=== PATIENT | male | born 1975 | race Caucasian/White ===

== ENCOUNTER → 2018-05-10 03:38 | Outpatient (CLI) | payer BC, SELFPAY ==
[2018-05-10 11:38] LABS: CREATININE 0.92 mg/dL (0.70-1.30); Cholesterol 209 mg/dL (50-200); Glucose 113 mg/dL (70-100); HDL Cholesterol 51 mg/dL (40-60); LDL CHOLESTEROL 149 mg/dL (<100); Triglyceride 74 mg/dL (30-150)
== END ==
PROVIDERS: PCP Family Medicine; Visit Provider Family Medicine
DX: I10 Essential (primary) hypertension (principal); E74.39 Other disorders of intestinal carbohydrate absorption; Z13.220 Encounter for screening for lipoid disorders
CPT/HCPCS: 36415; 80061; 82947; 83721; 82565; 84132

== ENCOUNTER 2018-08-14 10:21 | Outpatient (CLI) | payer OTHER, SELFPAY ==
--- NOTE | 2018-08-14 13:16 | DI.RAD_ITS ---
SYMPTOMS/DIAGNOSIS: LEFT FOOT PAIN S/P DROPPING PLYWOOD ON TOES, TENDER BIG TOE , M79.672 LEFT FOOT: Three views. No priors. There is a nondisplaced oblique fracture through the lateral aspect of the base of the distal phalanx of the great toe. There is also a lucency seen in the medial aspect of the head of the proximal phalanx of the great toe, suspicious for a nondisplaced fracture. There is soft tissue swelling of the great toe. No radiopaque foreign bodies are seen in the soft tissues. There are moderately large osteophytes seen at the talonavicular joint , the articulation between the articular and cuneiforms and the tarsometatarsal joints. There is a small enthesophyte at the insertion site of the Achilles. IMPRESSION: Findings of nondisplaced fractures involving the proximal and distal phalanges of the great toe.
== END 2018-08-14 10:41 ==
PROVIDERS: PCP Family Medicine; Visit Provider Family Medicine
DX: M79.672 Pain in left foot (principal); S92.412A Displaced fracture of proximal phalanx of left great toe, initial encounter for closed fracture; S92.422A Displaced fracture of distal phalanx of left great toe, initial encounter for closed fracture
CPT/HCPCS: 73630

== ENCOUNTER 2018-09-13 09:47 | Outpatient (CLI) | payer OTHER, SELFPAY ==
--- NOTE | 2018-09-13 09:35 | DI.RAD_ITS ---
SYMPTOM/DIAGNOSIS: FX LEFT GREAT TOE: Two views. Comparison 08/14/18 There has been no change in alignment of the fractures involving the base of the distal phalanx and the head of the proximal phalanx of the great toe. No new fractures or dislocations are seen. IMPRESSION: Stable fractures of the left great toe.
== END 2018-09-13 10:07 ==
PROVIDERS: PCP Family Medicine; Visit Provider Physician Assistant Surgical
DX: S92.425D Nondisplaced fracture of distal phalanx of left great toe, subsequent encounter for fracture with routine healing (principal); S92.412D Displaced fracture of proximal phalanx of left great toe, subsequent encounter for fracture with routine healing
CPT/HCPCS: 73660

== ENCOUNTER 2018-12-14 11:49 | Outpatient (CLI) | payer BC, SELFPAY ==
--- NOTE | 2018-12-14 14:33 | DI.RAD_ITS ---
SYMPTOMS/DIAGNOSIS: FALL, PLEURODYNIA, R07.81 PA CHEST AND RIGHT RIBS: The heart size is normal. The lungs are clear. No pneumothorax is seen. No rib fractures are identified. The right shoulder shows mild degenerative change. IMPRESSION: No acute abnormality.
== END 2018-12-14 12:09 ==
PROVIDERS: PCP Family Medicine; Visit Provider Family Medicine
DX: R07.81 Pleurodynia (principal)
CPT/HCPCS: 71046; 71100

== ENCOUNTER 2019-08-28 12:50 | Outpatient (CLI) | payer BC, SELFPAY ==
[2019-08-28 11:26] LABS: CREATININE 0.83 mg/dL (0.70-1.30); Calculated LDL 114 mg/dL; Cholesterol 175 mg/dL (<200); HDL Cholesterol 52 mg/dL (40-60); Hemoglobin A1C 5.7 % (4.5-6.2); Potassium 4.3 mmol/L (3.5-5.1); Triglyceride 46 mg/dL (<150)
== END 2019-08-28 13:10 ==
PROVIDERS: PCP Family Medicine; Visit Provider Family Medicine
DX: I10 Essential (primary) hypertension (principal); E74.39 Other disorders of intestinal carbohydrate absorption
CPT/HCPCS: 36415; 80061; 82565; 83036; 84132

== ENCOUNTER 2020-08-18 02:15 | Outpatient (CLI) | payer BC, SELFPAY ==
[2020-08-18 13:16] LABS: CREATININE 0.88 mg/dL (0.70-1.30); Calculated LDL 128 mg/dL (<100); Cholesterol 199 mg/dL (<200); HDL Cholesterol 49 mg/dL (40-60); Triglyceride 113 mg/dL (<150)
== END 2020-08-18 02:35 ==
PROVIDERS: PCP Family Medicine; Visit Provider Family Medicine
DX: Z00.00 Encounter for general adult medical examination without abnormal findings (principal); Z13.220 Encounter for screening for lipoid disorders
CPT/HCPCS: 36415; 80061; 82565; 84132

== ENCOUNTER 2021-09-01 02:33 | Outpatient (CLI) | payer BC, SELFPAY ==
[2021-09-01 10:01] LABS: CREATININE 0.8 mg/dL (0.70-1.30); Calculated LDL 146 mg/dL (<100); Cholesterol 212 mg/dL (<200); HDL Cholesterol 51 mg/dL (40-60); Potassium 4.2 mmol/L (3.5-5.1); Triglyceride 78 mg/dL (<150)
[2021-09-02 13:22] LABS: SS-A Antibody 0.8 Units (<20.0); SS-B (La) Ab, IgG 1.3 Units (<20.0)
== END 2021-09-01 02:34 | disposition home or self-care (01) ==
LOC: LBO 02:33
PROVIDERS: Family Medicine; PCP Family Medicine; Visit Provider Family Medicine
DX: I10 Essential (primary) hypertension; E78.5 Hyperlipidemia, unspecified; R43.2 Parageusia
CPT/HCPCS: 36415; 80061; 82565; 84132; 86235

== ENCOUNTER 2022-09-08 01:43 | Outpatient (CLI) | payer BC, SELFPAY ==
[2022-09-08 11:05] LABS: CREATININE 0.9 mg/dL (0.70-1.30); Calculated LDL 140 mg/dL (<100); Cholesterol 211 mg/dL (<200); Estimated GFR 106.01 (mL/min/1.73m2); HDL Cholesterol 62 mg/dL (40-60); Triglyceride 49 mg/dL (<150)
== END 2022-09-08 01:44 | disposition home or self-care (01) ==
PROVIDERS: PCP Family Medicine; Visit Provider Family Medicine
DX: Z00.00 Encounter for general adult medical examination without abnormal findings (principal)
CPT/HCPCS: 36415; 80061; 82565; 84132

== ENCOUNTER 2022-12-14 08:35 | Outpatient (CLI) | payer BC, SELFPAY ==
[2022-12-14 12:28] LABS: Potassium 3.7 mmol/L (3.5-5.1)
== END 2022-12-14 08:36 | disposition home or self-care (01) ==
LOC: LOS 08:36
PROVIDERS: PCP Family Medicine; Referring Provider Family Medicine; Visit Provider Family Medicine
DX: I10 Essential (primary) hypertension (principal)
CPT/HCPCS: 36415; 84132

== ENCOUNTER 2023-03-28 11:06 | Outpatient (CLI) | payer BC, SELFPAY ==
[2023-03-28 14:47] LABS: Potassium 4.6 mmol/L (3.5-5.1)
== END 2023-03-28 11:07 | disposition home or self-care (01) ==
LOC: LOS 11:07
PROVIDERS: PCP Family Medicine; Referring Provider Family Medicine; Visit Provider Family Medicine
DX: I10 Essential (primary) hypertension (principal)
CPT/HCPCS: 36415; 84132

== ENCOUNTER 2023-08-30 08:43 | Day surgery (SDC) | payer BC, SELFPAY ==
--- NOTE | 2023-08-30 07:25 | PDOC.DSDIS_ITS ---
Date of service: 08/30/23 Time of Service: 07:25 Discharge Plan Disposition Condition: Good Discharge Details Reason For Visit: De Quervain's Release R wrist Attending Provider: Jaylan Saba Primary Care Provider: Maykel Baca Home Meds and New Rx's Prescriptions: New acetaminophen 500 mg tablet 1,000 mg PO TID Qty: 90 0RF ibuprofen 600 mg tablet 600 mg PO TID PRN (Reason: pain) Qty: 90 0RF hydrocodone-acetaminophen 5-325 mg tablet 1 tab PO Q6H PRN (Reason: pain) Qty: 6 0RF Continued spironolactone [Aldactone] 50 mg tablet 50 mg PO DAILY Qty: 90 3RF lisinopril [Zestril] 20 mg tablet 20 mg PO DAILY Qty: 90 4RF Hold Instructions: Home Medication placed on hold at Doctor's office lisinopril-hydrochlorothiazide [Zestoretic] 20-25 mg tablet 1 tab PO DAILY Qty: 90 4RF Hold Instructions: Home Medication placed on hold at Doctor's office omeprazole 20 mg capsule,delayed release(DR/EC) 20 mg PO DAILY PRN (Reason: heartburn) Qty: 90 4RF metoprolol succinate 200 mg tablet extended release 24 hr 200 mg PO DAILY Qty: 90 3RF Discharge Instructions Additional Instructions: Rosa'ysabel Discharge Instructions Activity: You should keep the hand elevated as much as possible for the first few days. You may use the other fingers as tolerated but avoid trying to do too much too soon. You may perform light activities with the splint in place. Dressing/Cast: Your splint should stay in place at all times. Do NOT get it wet. You may loosen the ZACHARY wrap if you feel it is too tight and then rewrap more loosely. Medications: - You should take Tylenol and Ibuprofen for baseline pain control. - You have Hydrocodone for breakthrough pain. - You may apply ice over the thumb. Follow-up: 7-10 days Referrals: Jaylan Saba MD [ [facility] STAFF PHYSICIAN] - Equipment/Supplies: Splint Activity:: Elevate Remove Dressings/Wound Care:: Do Not Remove Shower/Bathe:: Cover Diet:: As Tolerated DS: Diagnosis Discharge Diagnosis (1) De Quervain's tenosynovitis, right: Status: Acute
[2023-08-30 09:08] VITALS: BP 148/90; PULSE 74; RESP 16; TEMP 36.3; O2SAT 98
[2023-08-30] MEDS: Lactated Ringers 1,000 ML 80 ML IV (09:46)
--- NOTE | 2023-08-30 09:57 | W.ANESPRE ---
General Info Date of Service Date Performed: 08/30/23 Height: 6 ft Weight: 123.6 kg Body Mass Index (BMI): 36.9 Surgical Procedure: Operation Date: 08/30/23 11:10 Proposed Procedure Side Surgeon p Wrist Dequervains Release Right Jaylan Saba MD Meds Allergies and Home Medications Allergies Allergy/AdvReac Type Severity Reaction Status Date / Time No Known Allergies Allergy Verified 08/30/23 08:59 Home Medication Medication Instructions Recorded lisinopril 20 mg tablet (Zestril) 20 mg PO DAILY #90 tab-caps 09/07/21 lisinopril 20 1 tab PO DAILY #90 tab-caps 09/15/22 mg-hydrochlorothiazide 25 mg tablet (Zestoretic) metoprolol succinate 200 mg 200 mg PO DAILY #90 tabs 09/15/22 tablet,extended release 24 hr omeprazole 20 mg capsule,delayed 20 mg PO DAILY PRN heartburn #90 09/15/22 release caps spironolactone 50 mg tablet 50 mg PO DAILY #90 tabs 12/14/22 (Aldactone) acetaminophen 500 mg tablet 1,000 mg (2 x 500 mg) PO TID #90 08/30/23 tabs hydrocodone 5 mg-acetaminophen 325 1 tab PO Q6H PRN pain #6 tabs 08/30/23 mg tablet ibuprofen 600 mg tablet 600 mg PO TID PRN pain #90 tabs 08/30/23 Current Visit Medications: Current Medications Generic Name Dose Route Start Last Admin Trade Name Freq PRN Reason Stop Dose Admin Acetaminophen 650 mg 08/30/23 07:24 Acetaminophen 325 Mg Tab PO 09/29/23 07:23 Q4H PRN PRN Hydrocodone Bitart/Acetaminophen 0 tab 08/30/23 07:24 Hydrocodone 5/Acetaminophen 325 Tab PO 09/29/23 07:23 Q3H PRN PRN Pain Ringer's Solution 1,000 mls @ 80 mls/hr 08/30/23 06:00 08/30/23 09:46 IV 08/30/23 23:59 80 mls/hr INFUSION CALVIN Administration Cefazolin Sodium/Dextrose 2 gm in 50 mls @ 100 mls/hr 08/30/23 06:00 Ancef Duplex IVPB 08/30/23 23:59 PREOP CALVIN IV Miscellaneous Supplies 1 each 08/30/23 06:00 Iv Access IV 08/30/23 23:59 DIRECTED CALVIN Sodium Chloride 0 ml 08/30/23 06:00 Normal Saline Flush 10 Ml Syr IV 08/30/23 23:59 PRN PRN Sodium Chloride 0 ml 08/30/23 06:00 Normal Saline 10 Ml Vial IJ 08/30/23 23:59 DIRECTED PRN Sterile Water 0 ml 08/30/23 06:00 Water,Injection,Sterile 10 Ml Vial IJ 08/30/23 23:59 DIRECTED PRN PFSH Active Problems Active Problems: Problem Status Onset Code Obesity E66.9 Overweight E66.3 De Quervain's tenosynovitis, right M65.4 Intermittent palpitations R00.2 Dermoid cyst of face D23.30 Mood disorder F39 Altered taste R43.2 Increased body mass index R63.8 Glucose intolerance 05/16/18 E74.39 Essential hypertension I10 Medical History Active Problem List Altered taste (Acute) Increased body mass index (Acute) Glucose intolerance (Acute 05/16/18) Essential hypertension (Acute) Medical History Color vision deficiency Foot pain, left xray ibuprofen support shoe Nevus, non-neoplastic multiple nevi on back; dysplastic nevus 2005 Seborrheic dermatitis (03/08/13) Surgical History Surgical History S/P trigger finger release Vasectomy Tobacco Smoking/Tobacco Use Status: Former Tobacco Use Passive smoking exposure: Yes Second hand exposure: Yes Alcohol Alcohol Intake: current Alcohol intake frequency: a few times a month Alcohol type: beer and wine Substance Use Substance use: Never Substance use type: does not use Vital Signs and Lab Results Vital Signs Most Recent Vital Signs in EMR: Most Recent Vital Signs Temp Pulse Resp BP Pulse Ox 36.3 C L 74 16 148/90 H 98 08/30/23 09:08 08/30/23 09:08 08/30/23 09:08 08/30/23 09:08 08/30/23 09:08 Lab Results Blood Type / Crossmatch: No Data to Display Complete Blood Count: No Data to Display Complete Metabolic Panel: No Data to Display Liver Function Panel: No Data to Display Coagulation Panel: No Data to Display Cardiac Panel: No Data to Display Arterial Blood Gas: No Data to Display Venous Blood Gas: No Data to Display Pancreas Panel: No Data to Display Thyroid Panel: No Data to Display Infectious Disease: No Data to Display Blood Cultures: No Data to Display Toxicology Panel: No Data to Display Anesthesia Assessment and Plan Anesthesia History Personal History: No History of Anesthesia Complications Family History: No Family History of Anesthesia Complications Exercise Tolerance Exercise Tolerance: Metabolic Equivalents>4 Pertinent Negatives Pertinent Negatives: No Symptoms of GERD Cardiac & Pulmonary Exam Cardiac Exam: Normal S1/S2 Heart Sounds Pulmonary Exam: Clear Bilateral Breath Sounds Implantable Cardiac Device Does patient have a Pacemaker or an ICD?: No Airway Exam Known Difficult Airway: No Mallampati Class: 2 Mouth Opening: Normal (> 3cm) Thyromental Distance: Greater than 3 cm Neck Range of Motion: Full ROM Neck Circumference: Normal Teeth Condition: Normal Dentition ASA Classification ASA Score: ASA 2 Emergency Case?: No NPO Status NPO Status: NPO Clears >2 hours, Solids >8 hours Anesthesia Plan Resuscitation Status: Full Code Anesthesia Technique: MAC Anesthesia Airway Planned: Natural Airway Monitors Used: Standard Monitors
[2023-08-30 09:58] VITALS: BMI 36.9
--- NOTE | 2023-08-30 10:21 | W.PREOPHP ---
Assessment and Plan Assessment and plan (1) De Quervain's tenosynovitis, right: Status: Acute Assessment and plan: Knostantin is a 47-year-old who has de Quervain's seems to Vitjose about the right hand. He has failed other nonoperative options and is here today for de Quervain's, first extensor compartment, release. I reviewed the risk with him. I discussed the potential complications of the procedure to include, but not limited to, bleeding, infection, pain, stiffness, damage to nerves and vessels, damage to muscle and tendons, incomplete release, tendon subluxation. Despite these risks, he elects to proceed. History of Present Illness History of Present Illness Chief Complaint: Right thumb pain Narrative: Konstantin is a 47-year-old who I seen previously for de Quervain's tenosynovitis about the right hand. He underwent an injection which did very well. But unfortunately the symptoms have returned. He has pain about the radial aspect of the right wrist. He denies any other symptoms. No new issues. No chest pain or shortness of breath. Review of Systems All systems reviewed & are unremarkable except as noted in HPI and below PFSH All Active Problems Obesity (Chronic) Overweight (Acute) De Quervain's tenosynovitis, right (Acute) S/P Release: 08/30/2023 Intermittent palpitations (Acute) Dermoid cyst of face (Acute) Mood disorder (Acute) Altered taste (Acute) felt to be related to dry mouth Increased body mass index (Acute) Glucose intolerance (Acute 05/16/18) Essential hypertension (Acute) Medical History Foot pain, left xray ibuprofen support shoe Seborrheic dermatitis (03/08/13) Nevus, non-neoplastic multiple nevi on back; dysplastic nevus 2006 Color vision deficiency Surgical History S/P trigger finger release Vasectomy Family History Mother Essential hypertension Hyperlipidemia Father Essential hypertension Hyperlipidemia Sister Essential hypertension Brother Essential hypertension Maternal Grandfather No problems noted. Paternal Grandfather Diabetes Maternal Grandmother No problems noted. Paternal Grandmother Breast cancer Daughter No problems noted. Son No problems noted. Social History Smoking/Tobacco Use Status: Former Tobacco Use tobacco type: cigarettes Quit Date: 10/02/07 Second Hand Exposure: Yes Smoking risk assessment performed?: Yes Alcohol Intake: current Alcohol Intake frequency: a few times a month Alcohol type: beer and wine Drug use: Never Substance use type: does not use Caregiver/Support person: No Household members: spouse and children Housing: house Communication Needs: None and Corrective Lenses Do you need help understanding health information?: Rarely Pets and animals: No Sexually active: Yes Do you think of yourself as: straight/heterosexual Current gender identity: male What is your relationship status?: How often do you talk on the phone with friends or family?: twice per week How often do you get together with friends or relatives?: once per week How often do you attend rastafari or mormon services?: 4 or more times per year Do you belong to any clubs or organized social groups?: no Panel score (0-1 are the most socially isolated patients): 3 What type of physical activity do you participate in: walking Duration: 15-30 minutes/day Frequency: 3-4 times per week Magda/Orthodoxy: Taoism Seatbelt use: always Helmet use: Yes Helmet use: sometimes Drive intox or ride w/intox stunt driver: No Do you feel safe at home: Yes Do you feel safe in your relationship?: Yes Victim of physical abuse: No Victim of emotional abuse: No Victim of sexual abuse: No Would you like helpful sources: No Meds Allergies and Home Medications Allergies Allergy/AdvReac Type Severity Reaction Status Date / Time No Known Allergies Allergy Verified 08/30/23 08:59 Home Medications Medication Instructions Recorded Confirmed Type lisinopril 20 mg tablet (Zestril) 20 mg PO DAILY #90 tab-caps 09/07/21 08/29/23 Rx lisinopril 20 1 tab PO DAILY #90 tab-caps 09/15/22 08/30/23 Rx mg-hydrochlorothiazide 25 mg tablet (Zestoretic) metoprolol succinate 200 mg 200 mg PO DAILY #90 tabs 09/15/22 08/30/23 Rx tablet,extended release 24 hr omeprazole 20 mg capsule,delayed 20 mg PO DAILY PRN heartburn #90 09/15/22 08/30/23 Rx release caps spironolactone 50 mg tablet 50 mg PO DAILY #90 tabs 12/14/22 08/30/23 Rx (Aldactone) acetaminophen 500 mg tablet 1,000 mg (2 x 500 mg) PO TID #90 08/30/23 Rx tabs hydrocodone 5 mg-acetaminophen 325 1 tab PO Q6H PRN pain #6 tabs 08/30/23 Rx mg tablet ibuprofen 600 mg tablet 600 mg PO TID PRN pain #90 tabs 08/30/23 Rx Exam Const General: cooperative, healthy appearing and no acute distress Orientation: alert, awake and oriented x3 Resp Effort & Inspection: normal respiratory effort Auscultation: clear to auscultation bilaterally Cardio Rate: regular rate Rhythm: regular rhythm Results Last Vital Signs Temp 36.3 C L 08/30/23 09:08 Pulse 74 08/30/23 09:08 Resp 16 08/30/23 09:08 BP 148/90 H 08/30/23 09:08 Pulse Ox 98 08/30/23 09:08
[2023-08-30] MEDS: ceFAZolin 2 GM/50 ML BAG IVPB (10:26)
[2023-08-30] MEDS: Lidocaine 1% Pres-Free 30 ML VIAL (10:32)
[2023-08-30] MEDS: Sodium Bicarbonate 50 MEQ/50 ML VIAL (10:32)
[2023-08-30 11:16] VITALS: BP 110/75; PULSE 68; RESP 16; TEMP 36.6; O2SAT 94
[2023-08-30 11:22] VITALS: BP 117/90; PULSE 57; RESP 16; TEMP 36.7; O2SAT 98
--- NOTE | 2023-08-30 11:27 | W.PM.OP ---
Date of service: 08/30/23 Time of Service: 10:20 Operative Note Operative Note DATE OF PROCEDURE: 08/30/23 PRE-OP DIAGNOSIS: Right DeQuervain's Tenosynovitis POST-OP DIAGNOSIS: same PROCEDURE: Right First Extensor Compartment Release SURGEON: Jaylan Saba ANESTHESIA TYPE: General:No Airway Refer to Anesthesia Record ESTIMATED BLOOD LOSS: 0 PATHOLOGY: none sent TOURNIQUET TIME: 0 COMPLICATIONS: None Patient was transported to: same day Patient's condition: stable Indications: Konstantin is a 47-year-old male who has had symptoms of Dequervain's tenosynovitis. Nonoperative treatment options had been trialed. Given their failure, I offered operative intervention. I reviewed the technical details of a first extensor compartment release. I reviewed the risk of the procedure to include bleeding, infection, pain, stiffness, tendon instability, damage to the superficial radial nerve, and complete release. Despite these risks, the patient elected to proceed. Findings: There was a tightened first excessive compartment. One primary subcompartments was seen encasing the EPB tendon. Procedure Description: Konstantin was greeted in the preoperative holding area. Name and surgical site were confirmed. The history and physical was completed. The consent was reviewed the patient and signed. He was taken back to the operating room. The patient was placed in the supine position and monitored anesthesia care was initiated. The right was then prepped with ChloraPrep and draped in a standard fashion after a nonsterile tourniquet was placed high up onto the arm. Prophylactic antibiotics in the form of cefazolin were administered. A timeout was performed for safe surgery. The surgical site was drawn on the skin. The planned surgical field was anesthetized with 0.25% bupivacaine with epinephrine. A 2 cm incision was made longitudinally over the radial styloid. The skin was incised only. The deep tissue subcutaneous fat was dissected with a tenotomy scissors trying to protect bridge of the superficial radial nerve. Any branches that were identified were retracted out of the way. The first compartment extensor tendons were then identified. The distal aspect of the first compartment was noted and were released. This release was performed more on the dorsal side to prevent tendon subluxation. The entirety of the first extensor compartment was then released. The slips of the abductor pollicis longus tendon were inspected. They removed to confirm the appropriate motion of the thumb. The extensor pollicis brevis tendon was then identified. There was 1 primary set compartment with the EPB tendon. It was fully released. Traction on the tendon was also used to confirm appropriate extension of the thumb confirming the release of the appropriate tendon. The dorsal radial surface of the radius was once again inspected to make sure there is no other sub-compartments or other restrictions to tendon motion. There is extensive amount of synovitis which was debrided sharply. The wound was then thoroughly irrigated. The deep tissue was closed with a 3-0 Vicryl. The skin was closed with a running subjective 4-0 Monocryl. Skin glue was applied. The tourniquet is released without significant bleeding. The hand was dressed with 4 x 4's, Kerlex and ZACHARY wrap into a soft thumb spica splint. All counts were correct. Patient was transferred back to same day surgery area in stable condition.
--- NOTE | 2023-08-30 11:42 | W.ANESPOSTOP ---
Postoperative Evaluation Date, Time and Location Date Performed: 08/30/23 Time Performed: 11:42 Patient Location: Day Surgery Unit Vital Signs Most Recent Imported Vital Signs: Most Recent Vital Signs Temp Pulse Resp BP Pulse Ox 36.7 C 57 L 16 117/90 98 08/30/23 11:22 08/30/23 11:22 08/30/23 11:22 08/30/23 11:22 08/30/23 11:22 Pain Score Most Recent Pain Score: Most Recent Pain Score Pain Level 0 08/30/23 11:22 Assessment Mental Status: Awake (Alert & Oriented to Patient Baseline) Airway and Respiratory Function: Patent airway with normal (patient baseline) respiratory exam Cardiovascular Function: Hemodynamically Stable Hydration Status: Adequately Hydrated Nausea & Vomiting: No Nausea or Vomiting Pain: Pt. Denies Any Pain Peripheral Nerve Block: Patient did not receive a nerve block
== END 2023-08-30 12:10 | disposition home or self-care (01) ==
LOC: SUR 08:43
PROVIDERS: PCP Family Medicine; Visit Provider Student in an Organized Health Care Education/Training Program
PROC: (CPT 25000; principal; 2023-08-30 11:00)
DX: M65.4 Radial styloid tenosynovitis [de Quervain] (principal)
CPT/HCPCS: 25000; J0690; J1100; J1885; J2405; J2704

== ENCOUNTER 2023-09-07 04:27 | Outpatient (CLI) | payer BC, SELFPAY ==
[2023-09-07 07:53] LABS: Calculated LDL 128 mg/dL (<100); Cholesterol 207 mg/dL (<200); Estimated GFR 92.84 (mL/min/1.73m2); HDL Cholesterol 44 mg/dL (40-60); Triglyceride 179 mg/dL (<150)
== END 2023-09-07 04:28 | disposition home or self-care (01) ==
LOC: LBO 04:28
PROVIDERS: PCP Family Medicine; Visit Provider Family Medicine
DX: E78.5 Hyperlipidemia, unspecified (principal); I10 Essential (primary) hypertension
CPT/HCPCS: 36415; 80061; 82565

== ENCOUNTER 2024-01-01 07:40 | Day surgery (SDC) | payer BC, SELFPAY ==
--- NOTE | 2023-12-31 14:30 | W.PM.DSUDISC ---
Date of service: 01/01/24 Time of Service: 09:13 Discharge Plan Disposition Patient Disposition: Home Condition: Good Discharge Details Reason For Visit: Screening colonoscopy Attending Provider: Chandan Kaiser Primary Care Provider: Maykel Baca Home Meds and New Rx's Prescriptions: Continued amlodipine 5 mg tablet 5 mg PO DAILY Qty: 90 3RF lisinopril-hydrochlorothiazide [Zestoretic] 20-25 mg tablet 1 tab PO DAILY Qty: 90 4RF Hold Instructions: Home Medication placed on hold at Doctor's office metoprolol succinate 200 mg tablet extended release 24 hr 200 mg PO DAILY Qty: 90 3RF albuterol sulfate [Ventolin HFA] 90 mcg/actuation HFA aerosol inhaler 2 puff inhalation QID PRN (Reason: shortness of breath or wheezing) Qty: 8.5 1RF Discontinued bisacodyl [Dulcolax (bisacodyl)] 5 mg tablet,delayed release (DR/EC) 5 mg PO ONCE Qty: 4 0RF Rx Instructions: Colonoscopy Bowel Prep- Per Instructions polyethylene glycol 3350 17 gram/dose powder 238 g PO ONCE Qty: 238 0RF Rx Instructions: Colonoscopy Bowel Prep- Per Instructions Discharge Instructions Instructions: Diverticulosis (GEN), Colorectal Polyps (GEN), Diverticulosis Diet (GEN) Additional Instructions: Konstantin, we were able to complete your colonoscopy today without any difficulty I did find a total of 5 polyps, which I removed completely. None of them have any particularly worrisome features to the naked eye. All will be sent off to be tested by the pathologist, and once we know the nature of the polyps, that my office will be in touch with recommendations for the timing of your next colonoscopy. Incidentally, you also have a little bit of diverticulosis. These are little weak spots in the muscular part of the colon wall. Generally, staying well-hydrated, avoiding symptoms of constipation, and maintaining a diet that is rich in dietary fiber is the best strategy to help prevent complications of diverticulosis. Have attached some general information here about: Rectal polyps, as well as diverticular disease. If you have any questions in the meantime, please do not hesitate to call or ask at any point. 1. If tolerated, consume a soft, low fiber diet for 1-2 days. 2[address] Do not drive, drink alcohol, operate machinery, make critical decisions, or do activities that require coordination or balance for 24 hours. 3. Because air was put into your colon during the procedure, expelling air from your rectum (passing gas or farting) is normal. 4. You may not have a bowel movement for 1-3 days because of the colonoscopy prep. This is normal. 5. Go directly to the emergency room if you notice any of the following: Develop chills (warm to touch), or if you have a thermometer and your temperature is above 101 Difficulty breathing or difficultly swallowing Persistent vomiting Severe abdominal pain, other than gas cramps Severe chest pain Black, tarry stools Any bleeding ? exceeding one tablespoon 6. Call your physician if the site where your intravenous was started becomes red, swollen, painful, and warm to touch. 7. Your physician has reviewed your pre-procedure medications. Please continue to take those medications as previously ordered. You will be given specific information/education regarding any changes to your medications before leaving. Activity:: Activity as Tolerated Diet:: As Tolerated Discharge Orders Discharge Orders: Discharge Order (Routine); Ordered 12/31/23 Ordered By: Chandan Kaiser DS: Diagnosis Discharge Diagnosis (1) Positive colorectal cancer screening using Cologuard test: Status: Acute Asessment and Plan: Follow-up on polypectomy results
--- NOTE | 2023-12-31 14:31 | COLE_ITS ---
Date of service: 01/01/24 Time of Service: 09:15 Colonoscopy Report Date of procedure: 01/01/24 Pre-op diagnosis general: Screening colonoscopy Post-op diagnosis procedure note: other (Diverticulosis, colon polyps) Procedure: Colonoscopy with polypectomy Surgeon: Chandan Kaiser Anesthesia Type: General:No Airway Estimated blood loss (mL): 5 Pathology: other (0.25 cm polyp at 65 cm, 0.25 cm polyp at 45 cm, 0.75 cm polyp at 40 cm, 0.25 cm polyp at 35 cm, 0.25 cm polyp at 30 cm) Complications: None Disposition: same day Indications: Konstantin is a 48-year-old male who had a positive Cologuard test. He is here for follow-up screening colonoscopy. Prep: Miralax/Dulcolax Procedure Start Time: 08:36 Procedure End Time: 08:58 Retraction Time: 16 Findings: Diverticulosis, 0.25 cm polyp at 65 cm, 0.25 cm polyp at 45 cm, 0.75 cm polyp at 40 cm, 0.25 cm polyp at 35 cm, 0.25 cm polyp at 30 cm Procedure Description: After the induction of monitored anesthetic care, and with the patient in left lateral decubitus position, I began by performing an external anorectal exam.? Perineum and skin were normal, as was the anal verge.? There was no evidence of external hemorrhoids.? Next, I performed a digital rectal exam.? I did not appreciate any abnormal findings.? Next, I advanced a colonoscope into the rectal vault.? I performed retroflexion.? This appeared normal.? Using insufflation, I then advanced the colonoscope beyond the rectal folds and into the sigmoid colon before advancing towards the cecum.? There was some sigmoid diverticulosis.? The scope was noted to be in the cecum by identification of the ileocecal valve and appendiceal orifice.? I then began withdrawing the colonoscope using repeated irrigation as necessary for full evaluation of the colonic mucosa. Around 65 cm from the anal verge was a 0.25 cm flat polyp. This was removed with cold forceps. Similarly, I found another 0.25 cm polyp at 45 cm from the anus. This was a little bit more pedunculated. This was also removed with cold forceps. There was minimal bleeding from either one of the sites. At 40 cm from the anal verge was a 0.75 cm pedunculated polyp. This was retrieved with cold snare polypectomy. Finally, I also found polyps at 35 and 30 cm from the anal verge. Both of these were flat. Each of these polyps was about 0.25 cm, and each was removed with cold forceps. Once the scope was withdrawn to the level of the rectum, great care was taken to examine portions of the rectal folds.? Finally, the scope was withdrawn and the patient was brought to the same-day surgery recovery unit as the anesthetic wore off. ?The findings and instructions were shared with the patient prior to discharge. Columbia Bowel Prep Columbia Bowel Prep Right Colon: 3 Left Colon: 3 Transverse Colon: 3 Total Score: 9
--- NOTE | 2023-12-31 18:36 | W.ANESPRE ---
General Info Date of Service Date Performed: 01/01/24 Height: 6 ft Weight: 124.851 kg Body Mass Index (BMI): 37.3 Surgical Procedure: Operation Date: 01/01/24 09:05 Proposed Procedure Side Surgeon america Kaiser MD Meds Allergies and Home Medications Allergies Allergy/AdvReac Type Severity Reaction Status Date / Time No Known Allergies Allergy Verified 01/01/24 07:44 Home Medication Medication Instructions Recorded amlodipine 5 mg tablet 5 mg PO DAILY #90 tabs 09/21/23 lisinopril 20 1 tab PO DAILY #90 tab-caps 09/21/23 mg-hydrochlorothiazide 25 mg tablet (Zestoretic) metoprolol succinate 200 mg 200 mg PO DAILY #90 tabs 09/21/23 tablet,extended release 24 hr albuterol sulfate 90 mcg/actuation 2 puff inhalation QID PRN 10/03/23 aerosol inhaler (Ventolin HFA) shortness of breath or wheezing #8.5 grams Current Visit Medications: Current Medications Generic Name Dose Route Start Last Admin Trade Name Freq PRN Reason Stop Dose Admin Hyoscyamine Sulfate 0.125 mg 12/31/23 14:32 Hyoscyamine 0.125 Mg Sl/Oral/Chew SL 01/30/24 14:31 DIRECTED PRN Ringer's Solution 1,000 mls @ 80 mls/hr 01/01/24 06:00 IV 01/01/24 23:59 INFUSION CALVIN IV Miscellaneous Supplies 1 each 01/01/24 06:00 Iv Access IV 01/01/24 23:59 DIRECTED CALVIN Ondansetron HCl 4 mg 12/31/23 14:32 Ondansetron 4 Mg/2 Ml Vial IVP 01/30/24 14:31 Q4H PRN PRN Nausea / Vomiting Sodium Chloride 0 ml 01/01/24 06:00 Normal Saline Flush 10 Ml Syr IV 01/01/24 23:59 PRN PRN Sodium Chloride 0 ml 01/01/24 06:00 Normal Saline 10 Ml Vial IJ 01/01/24 23:59 DIRECTED PRN Sterile Water 0 ml 01/01/24 06:00 Water,Injection,Sterile 10 Ml Vial IJ 01/01/24 23:59 DIRECTED PRN PFSH Active Problems Active Problems: Problem Status Onset Code Positive colorectal cancer screening using Cologuard test R19.5 Dysplastic nevus D23.9 Obesity E66.9 Overweight E66.3 Intermittent palpitations R00.2 Dermoid cyst of face D23.30 Mood disorder F39 Altered taste R43.2 Increased body mass index R63.8 Glucose intolerance 05/16/18 E74.39 Essential hypertension I10 Medical History Medical History Foot pain, left xray ibuprofen support shoe Seborrheic dermatitis (03/08/13) Nevus, non-neoplastic multiple nevi on back; dysplastic nevus 2006 Color vision deficiency Surgical History Surgical History De Quervain's tenosynovitis, right S/P Release: 08/30/2023 S/P trigger finger release Vasectomy Tobacco Smoking/Tobacco Use Status: Former Tobacco Use Passive smoking exposure: Yes Second hand exposure: Yes Alcohol Alcohol Intake: current Alcohol intake frequency: a few times a month Alcohol type: beer and wine Substance Use Substance use: Never Substance use type: does not use Vital Signs and Lab Results Vital Signs Most Recent Vital Signs in EMR: Temp Pulse Resp BP Pulse Ox 36.7 C 71 18 146/96 H 100 01/01/24 07:46 01/01/24 07:46 01/01/24 07:46 01/01/24 07:46 01/01/24 07:46 Lab Results Blood Type / Crossmatch: No Data to Display Complete Blood Count: No Data to Display Complete Metabolic Panel: No Data to Display Liver Function Panel: No Data to Display Coagulation Panel: No Data to Display Cardiac Panel: No Data to Display Arterial Blood Gas: No Data to Display Venous Blood Gas: No Data to Display Pancreas Panel: No Data to Display Thyroid Panel: No Data to Display Infectious Disease: No Data to Display Blood Cultures: No Data to Display Toxicology Panel: No Data to Display Anesthesia Assessment and Plan Anesthesia History Personal History: No History of Anesthesia Complications Family History: No Family History of Anesthesia Complications Exercise Tolerance Exercise Tolerance: Metabolic Equivalents>4 Cardiac & Pulmonary Exam Cardiac Exam: Normal S1/S2 Heart Sounds Pulmonary Exam: Clear Bilateral Breath Sounds Implantable Cardiac Device Does patient have a Pacemaker or an ICD?: No Airway Exam Known Difficult Airway: No Mallampati Class: 2 Mouth Opening: Normal (> 3cm) Thyromental Distance: Greater than 3 cm Neck Range of Motion: Full ROM Neck Circumference: Normal Teeth Condition: Normal Dentition ASA Classification ASA Score: ASA 2 Emergency Case?: No NPO Status NPO Status: NPO Clears >2 hours, Solids >8 hours Anesthesia Plan Resuscitation Status: Full Code Anesthesia Technique: General Anesthesia Airway Planned: Natural Airway Monitors Used: Standard Monitors Preoperative Comments:: 48 yo male for colo. Sig PMHx: palpitations, HTN (amlodipine, metoprolol, lisinopril, HCTZ). former smoker occ EtOH. Previous Anes: - dequerv, prop, natural airway, no issues.
[2024-01-01 07:46] VITALS: BP 146/96; PULSE 71; RESP 18; TEMP 36.7; O2SAT 100
[2024-01-01] MEDS: Lactated Ringers 1,000 ML 80 ML IV (08:03)
[2024-01-01 08:07] VITALS: BMI 37.3
--- NOTE | 2024-01-01 08:48 | BOWEL_PTH ---
PATIENT: Konstantin Lugo LOC: [facility] U#:[id number] AGE/SX: 48/M ROOM: RE01/01/[address]: Chandan Kaiser MD : 1975 BED: DIS: 01/01/2024 SPEC #: [id number] RECD: 01/01/24 12:47 STATUS: ARNIEBeata RE #: [id number] DIVYA: 01/01/24 08:[address]: Chandan Kaiser DEPT: Surgical Specimen RECD BY: Erica Crawley ENTERED: 01/01/24 12:48 SP TYPE: Bowel OTHR DR: Maykel Baca MD Tissues: 1 - BIOPSY BOWEL 2 - BIOPSY BOWEL 3 - BIOPSY BOWEL 4 - BIOPSY BOWEL 5 - BIOPSY BOWEL Procedures: GROSS AND MICRO LEVEL 4 Comments: [id number]
[2024-01-01 09:04] VITALS: BP 118/78; PULSE 72; RESP 16; TEMP 36.1; O2SAT 96
--- NOTE | 2024-01-01 09:38 | W.ANESPOSTOP ---
Postoperative Evaluation Date, Time and Location Date Performed: 01/01/24 Time Performed: 09:38 Patient Location: Day Surgery Unit Vital Signs Most Recent Imported Vital Signs: Most Recent Vital Signs Temp Pulse Resp BP Pulse Ox 36.1 C L 72 16 118/78 96 01/01/24 09:04 01/01/24 09:04 01/01/24 09:04 01/01/24 09:04 01/01/24 09:04 Assessment Mental Status: Awake (Alert & Oriented to Patient Baseline) Airway and Respiratory Function: Patent airway with normal (patient baseline) respiratory exam Cardiovascular Function: Hemodynamically Stable Hydration Status: Adequately Hydrated Nausea & Vomiting: No Nausea or Vomiting Pain: Pt. Denies Any Pain Peripheral Nerve Block: Patient did not receive a nerve block
[2024-01-01 09:40] VITALS: BP 134/83; PULSE 58; RESP 16; TEMP 36.4; O2SAT 97
== END 2024-01-01 10:05 | disposition home or self-care (01) ==
LOC: SUR 07:40
PROVIDERS: PCP Family Medicine; Visit Provider Surgery
PROC: 0DJD8ZZ Inspection of Lower Intestinal Tract, Via Natural or Artificial Opening Endoscopic (ICD-10-PCS; CPT 45378; principal; 2024-01-01 09:00)
DX: Z12.11 Encounter for screening for malignant neoplasm of colon (principal); R19.5 Other fecal abnormalities; K63.5 Polyp of colon; K57.30 Diverticulosis of large intestine without perforation or abscess without bleeding; I10 Essential (primary) hypertension; R00.2 Palpitations; F10.90 Alcohol use, unspecified, uncomplicated; Z87.891 Personal history of nicotine dependence; K63.89 Other specified diseases of intestine
CPT/HCPCS: 45385; 45380; 88305; J2704

== ENCOUNTER 2024-05-21 08:21 | Outpatient (CLI) | payer BC, SELFPAY ==
[2024-05-21 12:30] LABS: Potassium 3.7 mmol/L (3.5-5.1)
== END 2024-05-21 08:22 | disposition home or self-care (01) ==
LOC: LOS 08:21
PROVIDERS: PCP Family Medicine; Referring Provider Family Medicine; Visit Provider Family Medicine
DX: I10 Essential (primary) hypertension (principal); Z12.5 Encounter for screening for malignant neoplasm of prostate; E78.5 Hyperlipidemia, unspecified
CPT/HCPCS: 36415; 84132

== ENCOUNTER 2024-12-26 08:28 | Outpatient (CLI) | payer BC, SELFPAY ==
[2024-12-26 13:07] LABS: CREATININE 0.9 mg/dL (0.70-1.30); Calculated LDL 137 mg/dL (<100); Cholesterol 210 mg/dL (<200); Estimated GFR 104.05 (mL/min/1.73m2); HDL Cholesterol 53 mg/dL (>or=40); Triglyceride 101 mg/dL (<150)
[2024-12-26 18:05] LABS: PSA, Screening 1.2 ng/mL (<=3.5)
== END 2024-12-26 08:29 | disposition home or self-care (01) ==
LOC: LOS 08:28
PROVIDERS: PCP Family Medicine; Referring Provider Family Medicine; Visit Provider Family Medicine
DX: Z12.5 Encounter for screening for malignant neoplasm of prostate (principal); E78.5 Hyperlipidemia, unspecified; I10 Essential (primary) hypertension
CPT/HCPCS: 36415; 80061; 84153; 82565